=== PATIENT | male | born 1965 | race Caucasian/White ===

== ENCOUNTER → 2016-10-06 | Day surgery (SDC) | payer BC ==
[~2016-10-06] MED LIST: Acetaminophen/HYDROcodone 325-5 MG Tab PO PRN; Ketorolac 30 MG/ML SDV IVPUSH PRN; Lactated Ringers 1,000 ML IV SCH; Lidocaine 1% 4 ML ONE; Lidocaine 1%/Sod Bicarbonate in NS 8.4% 1 ML Syringe IV PRN; Midazolam 1 MG/ML 2 ML SDV ONE; Ondansetron 4 MG/2 ML SDV IVPUSH PRN; Ondansetron 4 MG/2 ML SDV ONE; Propofol 200 MG/20 ML SDV ONE; Sodium Chloride 0.9% 10 ML Syringe FLUSH PRN; Vancomycin 1 GM, Vancomycin 500 MG in Sodium Chloride 0.9% 500 ML IV ONE; ceFAZolin 1 GM Vial ONE; ePHEDrine/Normal Saline 25 MG/5 ML Syringe ONE; fentaNYL 250 MCG/5 ML SDV ONE; oxyCODONE ER 10 MG TAB.ER PO ONE
--- NOTE | 2016-10-06 09:38 | PCM.PREANE ---
Preanesthetic Assessment - Anesthesia/Transfusion/Family Hx Anesthesia History: Prior Anesthesia Without Reaction Family History of Anesthesia Reaction: No Type of Transfusion Reactions: Reports: Unknown - Review of Systems General: No Symptoms Pulmonary: No Symptoms Cardiovascular: No Symptoms Gastrointestinal: No symptoms Neurological: No Symptoms Other: Reports: None - Physical Assessment NPO Status Date: 10/05/16 NPO Status Time: 00:00 Pulse: 60 O2 Sat by Pulse Oximetry: 97 Respiratory Rate: 16 Blood Pressure: 139/88 Temperature: 35.9 C Height: 1.88 m Weight: 95.254 kg ASA Class: 2 Mental Status: Alert & Oriented x3 Dentition: Reports: Normal Dentition, [place](s) Thyro-Mental Finger Breadths: 3 Mouth Opening Finger Breadths: 3 ROM/Head Extension: Full Lungs: Clear to auscultation, Normal respiratory effort Cardiovascular: Regular Rate, Regular Rhythm, No Murmurs - Allergies Allergies/Adverse Reactions: Allergies Allergy/AdvReac Type Severity Reaction Status Date / Time erythromycin base Allergy Anaphylactic Verified 10/05/16 15:15 [Erythromycin Base] Shock hydromorphone [Hydromorphone] Allergy Hives Verified 10/05/16 15:15 - Blood Blood Available: Yes Product(s) Available: None - Anesthesia Plan Pre-Op Medication Ordered: Beta Donte Beta Donte: Atenolol Med Last Dose Date: 10/05/16 Med Last Dose Time: 18:00 - Acknowledgements Anesthesia Type Planned: General Anesthesia Pt an Appropriate Candidate for the Planned Anesthesia: Yes Alternatives and Risks of Anesthesia Discussed w Pt/Guardian: Yes Pt/Guardian Understands and Agrees with Anesthesia Plan: Yes PreAnesthesia Questionnaire HEENT History: Reports: Allergic rhinitis, Impaired vision, Otitis media, Sinusitis, Other (see below) Other HEENT History: wears glasses Cardiovascular History: Reports: Hypertension, Other (see below) Other Cardiovascular History: chest pain, orthostatic hypotension Respiratory History: Reports: Bronchitis, recurrent, Other (see below) Other Respiratory History: cough Gastrointestinal History: Reports: GERD Genitourinary History: Reports: Renal calculus, Other (see below) Other Genitourinary History: hematuria 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 Musculoskeletal History: Reports: Other (see below) Other Musculoskeletal History: bunion, R rotator cuff tear, back ache, hand fracture, hallux valgus, hammertoe Neurological History: Reports: Concussion, Headaches, chronic, Vertigo, Other ( see below) Other Neuro History: syncope Psychiatric History: Reports: Other (see below) Other Psychiatric History: insomnia Endocrine/Metabolic History: Reports: Other (see below) Other Endocrine/Metabolic History: impaired fasting glucose Hematologic History: Reports: None Immunologic History: Reports: None Oncologic (Cancer) History: Reports: Malignant melanoma Dermatologic History: Reports: Cellulitis, Melanoma Other Dermatologic History: toe infections, cellulitis and abcess, keratoderma, 2nd degree burn, malignant melanoma, nevus - Infectious Disease History Infectious Disease History: Reports: MRSA - Past Surgical History HEENT Surgical History: Reports: Adenoidectomy, Tonsillectomy GI Surgical History: Reports: Colonoscopy, EGD Male Surgical History: Reports: Other (see below) Other Male Surgeries/Procedures: cystoscopy Other Musculoskeletal Surgeries/Procedures:: 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 3rd and 4th left toes removed, big toe amputation, R shoulder fracture with surgery x 2 - SUBSTANCE USE Smoking Status *Q: Former Smoker Tobacco Use Within Last Twelve Months: Snuff/Dip Second Hand Smoke Exposure: Yes Days Per Week of Alcohol Use: 1 Number of Drinks Per Day: 1 Total Drinks Per Week: 1 Recreational Drug Use History: No - HOME MEDS Home Medications: Home Meds Aspirin [Ecotrin] 81 mg PO BEDTIME 10/25/13 [History] Esomeprazole Magnesium [Nexium] 20 mg PO BEDTIME 10/25/13 [History] Loratadine [Claritin RediTabs] 10 mg PO BEDTIME 10/25/13 [History] amLODIPine Besylate/Benazepril [Amlodipine-Benazepril 10-20 MG] 1 cap PO BEDTIME 10/25/13 [History] Ibuprofen [Advil] 4 cap PO Q12H PRN 05/22/14 [History] Potassium Chloride [Klor-Con M20] 20 meq PO BEDTIME 05/22/14 [History] Chlorthalidone 25 mg PO BEDTIME 03/25/16 [History] Atenolol [Atenolol] 12.5 mg PO DAILY 10/05/16 [History] - CURRENT (IN HOUSE) MEDS Current Meds: Current Medications Lactated Ringer's (Ringers, Lactated) 1,000 mls @ 125 mls/hr IV ASDIRECTED SAGAR Vancomycin HCl 1 gm/Vancomycin HCl 500 mg/ Sodium Chloride 500 mls @ 333.333 mls/hr IV ONETIME ONE Stop: 10/06/16 11:19 Lidocaine/Sodium Bicarbonate (Buffered Lidocaine 1% In Ns 8.4%) 0.25 ml IV ONETIME PRN PRN Reason: Prior to IV Start Sodium Chloride (Saline Flush) 10 ml FLUSH ASDIRECTED PRN PRN Reason: Keep Vein Open Discontinued Medications Cefazolin Sodium (Ancef) Confirm Administered Dose 2 gm .ROUTE .STK-MED ONE Stop: 10/06/16 09:31 Fentanyl (Sublimaze) Confirm Administered Dose 250 mcg .ROUTE .STK-MED ONE Stop: 10/06/16 09:31 Vancomycin HCl 1 gm/Vancomycin HCl 500 mg/ Sodium Chloride 500 mls @ 333.333 mls/hr IV ONETIME ONE Stop: 10/06/16 11:19 Lidocaine HCl (Xylocaine-Mpf 1%) Confirm Administered Dose 4 mls @ as directed .ROUTE .STK-MED ONE Stop: 10/06/16 09:31 Midazolam HCl (Versed 1 Mg/Ml) Confirm Administered Dose 2 mg .ROUTE .STK-MED ONE Stop: 10/06/16 09:31 Ondansetron HCl (Zofran) Confirm Administered Dose 4 mg .ROUTE .STK-MED ONE Stop: 10/06/16 09:30 Propofol (Diprivan 20 Ml) Confirm Administered Dose 200 mg .ROUTE .STK-MED ONE Stop: 10/06/16 09:30
[2016-10-06] MEDS: Bupivacaine 0.5% 30 ML SDV ONE ×2 (10:25→10:47)
[2016-10-06] MEDS: Iodine/Sodium Iodide 2% Tincture 30 ML Bottle ONE ×2 (10:45→10:47)
--- NOTE | 2016-10-06 11:15 | PCM.POSTAN ---
POST ANESTHESIA ASSESSMENT - MENTAL STATUS Mental Status: alert, oriented - VITAL SIGNS Pulse Rate: 82 SaO2: 95 Resp Rate: 15 Blood Pressure: 136/92 Temperature: 37.1 C - RESPIRATORY Respiratory Status: respiratory rate WNL, airway patent, O2 saturation stable - CARDIOVASCULAR CV Status: pulse rate WNL, blood pressure stable - GASTROINTESTINAL GI Status: no symptoms - PAIN Pain Score: 4 - POST OP HYDRATION Hydration Status: adequate & stable - OBSERVATIONS Free Text/Narrative:: no anesthesia complications noted
[2016-10-06] MEDS: fentaNYL 100 MCG/2 ML SDV IVPUSH PRN ×3 (11:22→11:38)
--- NOTE | 2016-10-06 13:20 | OR ---
DATE OF OPERATION: 10/06/2016 SURGEON: Carlitos Escamilla MD PREOPERATIVE DIAGNOSIS: 1. Painful hardware, first metatarsal, left foot. 2. Painful scar/neuroma formation, incisional site, first metatarsal left foot. POSTOPERATIVE DIAGNOSIS: 1. Painful hardware, first metatarsal, left foot. 2. Painful scar/neuroma formation, incisional site, first metatarsal left foot. ANESTHESIA: General. OPERATION PERFORMED: 1. Removal of painful hardware, 2 screws, first metatarsal, left foot. 2. Excision of painful scar neuroma incision site, left foot. DESCRIPTION OF PROCEDURE: The patient was taken to the operating room in supine position. He was placed under a general anesthesia. The left leg was then prepped and draped by standard technique and the operation began with evaluation of the left foot with fluoroscopy. Using an 18-gauge needle, the fixation sites for the screws that were painful were identified. A #11 blade was then used to go through the skin and dissection was carried down to the screw heads. They were removed in retrograde fashion and 2 incisions were necessary. Once that was complete, the operation had hard copy x-rays taken. The area of the painful scar neuroma-type formation was identified. This area was then sharply incised using an #11 blade creating a small elliptical incision going deep on the scar and excising it approximately 4 mm below the surface. A piece of tissue was then removed and then sent to the laboratory for study. After the removal of the mass, the operation proceeded with irrigation of the wounds with iodine solution. Once thorough irrigation was completed, the skin edges were closed with 4-0 Prolene interrupted. Xeroform was used for dressing, standard dressings, soft dressing being applied to the foot. The patient tolerated this whole procedure well and left the operating room in stable condition to his room for recovery. ESTIMATED BLOOD LOSS: MMODAL /[id number]
[2016-10-06 13:44] VITALS: BP 141/87
--- NOTE | 2016-10-07 10:05 | CR ---
Left foot: Three fluoroscopic spot views were obtained of the left foot utilizing C-arm device. Comparison: Previous left foot study of 03/16/16. Two orthopedic screws seen previously within the first metatarsal have been removed in the interim. Fluoroscopy time is given as 38.4 seconds. Impression: 1. Findings as described above. Diagnostic code #1
== END | disposition home or self-care (01) ==
LOC: JD.SDS 09:11
PROVIDERS: ATTEND Specialist
DX: T84.84XA Pain due to internal orthopedic prosthetic devices, implants and grafts, initial encounter (principal); L90.5 Scar conditions and fibrosis of skin; Z88.1 Allergy status to other antibiotic agents; Z88.8 Allergy status to other drugs, medicaments and biological substances; I10 Essential (primary) hypertension; Z79.82 Long term (current) use of aspirin; Z79.899 Other long term (current) drug therapy; K21.9 Gastro-esophageal reflux disease without esophagitis; Z90.49 Acquired absence of other specified parts of digestive tract; Z98.890 Other specified postprocedural states; Z87.891 Personal history of nicotine dependence
CPT/HCPCS: 11421; 28022; 76000; 88305; A9270; J0690; J1885; J2250; J2405; J3010; J3370; J7040; J7050; J7120; 01480; J2704

== ENCOUNTER 2017-02-24 07:45 | Day surgery (SDC) | payer BC ==
[~2017-02-24 07:45] MED LIST changes: -Acetaminophen/HYDROcodone 325-5 MG Tab PO PRN; -Ketorolac 30 MG/ML SDV IVPUSH PRN; -Lidocaine 1% 4 ML ONE; -Lidocaine 1%/Sod Bicarbonate in NS 8.4% 1 ML Syringe IV PRN; +Lidocaine 1%/Sod Bicarbonate in NS 8.4% 1 ML Syringe PRN; -Midazolam 1 MG/ML 2 ML SDV ONE; -Ondansetron 4 MG/2 ML SDV IVPUSH PRN; -Ondansetron 4 MG/2 ML SDV ONE; -Vancomycin 1 GM, Vancomycin 500 MG in Sodium Chloride 0.9% 500 ML IV ONE; -ceFAZolin 1 GM Vial ONE; -ePHEDrine/Normal Saline 25 MG/5 ML Syringe ONE; +fentaNYL 100 MCG/2 ML SDV ONE; -fentaNYL 250 MCG/5 ML SDV ONE; -oxyCODONE ER 10 MG TAB.ER PO ONE
--- NOTE | 2017-02-24 08:12 | PCM.PREANE ---
Preanesthetic Assessment - Anesthesia/Transfusion/Family Hx Anesthesia History: Prior Anesthesia Without Reaction Family History of Anesthesia Reaction: No Transfusion History: No Prior Transfusion(s) Intubation History: Unknown - Review of Systems General: No Symptoms Pulmonary: No Symptoms (chew tobacco 02/23/17 @ 1200) Cardiovascular: No Symptoms (HTN) Gastrointestinal: No Symptoms (variable bowel habits as a symptom of spina bifida history) Neurological: No Symptoms (chronic left foot pain noted 10/14.) Other: Reports: None, Sinus Problem (chronic rhinitis) - Physical Assessment NPO Status Date: 02/23/17 NPO Status Time: 16:00 Pulse: 89 O2 Sat by Pulse Oximetry: 97 Respiratory Rate: 16 Blood Pressure: 126/77 Temperature: 36.7 C Height: 1.88 m Weight: 86 kg ASA Class: 2 Mental Status: Alert & Oriented x3 Airway Class: Mallampati = 2 Dentition: Reports: Normal Dentition, Caries Thyro-Mental Finger Breadths: 3 Mouth Opening Finger Breadths: 3 ROM/Head Extension: Full Lungs: Clear to Auscultation, Normal Respiratory Effort Cardiovascular: Regular Rate, Regular Rhythm, No Murmurs - Lab Values: MRSA screen is positive. - Allergies Allergies/Adverse Reactions: Allergies Allergy/AdvReac Type Severity Reaction Status Date / Time erythromycin base Allergy Anaphylactic Verified 02/24/17 07:47 [Erythromycin Base] Shock hydromorphone [Hydromorphone] Allergy Hives Verified 02/24/17 07:47 - Anesthesia Plan Pre-Op Medication Ordered: Beta Donte Beta Donte: Atenolol Med Last Dose Date: 02/22/17 Med Last Dose Time: 17:00 - Acknowledgements Anesthesia Type Planned: MAC Pt an Appropriate Candidate for the Planned Anesthesia: Yes Alternatives and Risks of Anesthesia Discussed w Pt/Guardian: Yes Pt/Guardian Understands and Agrees with Anesthesia Plan: Yes PreAnesthesia Questionnaire HEENT History: Reports: Allergic Rhinitis, Impaired Vision, Otitis Media, Sinusitis, Other (See Below) Other HEENT History: wears glasses Cardiovascular History: Reports: Hypertension, Other (See Below) Other Cardiovascular History: chest pain, orthostatic hypotension Respiratory History: Reports: Bronchitis, Recurrent, Other (See Below) Other Respiratory History: cough Gastrointestinal History: Reports: GERD Genitourinary History: Reports: Renal Calculus, Other (See Below) Other Genitourinary History: hematuria 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 Musculoskeletal History: Reports: Other (See Below) Other Musculoskeletal History: bunion, R rotator cuff tear, back ache, hand fracture, hallux valgus, hammertoe Neurological History: Reports: Concussion, Headaches, Chronic, Vertigo, Other ( See Below) Other Neuro History: syncope Psychiatric History: Reports: Other (See Below) Other Psychiatric History: insomnia Endocrine/Metabolic History: Reports: Other (See Below) Other Endocrine/Metabolic History: impaired fasting glucose Hematologic History: Reports: None Immunologic History: Reports: None Oncologic (Cancer) History: Reports: Malignant Melanoma Dermatologic History: Reports: Cellulitis, Melanoma Other Dermatologic History: toe infections, cellulitis and abcess, keratoderma, 2nd degree burn, malignant melanoma, nevus - Infectious Disease History Infectious Disease History: Reports: MRSA - Past Surgical History HEENT Surgical History: Reports: Adenoidectomy, Tonsillectomy GI Surgical History: Reports: Colonoscopy, EGD Male Surgical History: Reports: Other (See Below) Other Male Surgeries/Procedures: cystoscopy Other Musculoskeletal Surgeries/Procedures:: 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 3rd and 4th left toes removed, big toe amputation, R shoulder fracture with surgery x 2 - SUBSTANCE USE Smoking Status *Q: Former Smoker Tobacco Use Within Last Twelve Months: Snuff/Dip Second Hand Smoke Exposure: Yes Days Per Week of Alcohol Use: 1 Number of Drinks Per Day: 1 Total Drinks Per Week: 1 Recreational Drug Use History: No - HOME MEDS Home Medications: Home Meds Aspirin [Ecotrin] 81 mg PO BEDTIME 10/25/13 [History] Esomeprazole Magnesium [Nexium] 20 mg PO BEDTIME 10/25/13 [History] amLODIPine Besylate/Benazepril [Amlodipine-Benazepril 10-20 MG] 1 cap PO BEDTIME 10/25/13 [History] Potassium Chloride [Klor-Con M20] 20 meq PO BEDTIME 05/22/14 [History] Chlorthalidone 25 mg PO BEDTIME 03/25/16 [History] Atenolol [Atenolol] 12.5 mg PO DAILY 10/05/16 [History] Acetaminophen with Codeine [Tylenol with Codeine #3 Tablet] 1 tab PO Q6H PRN [History] - CURRENT (IN HOUSE) MEDS Current Meds: Current Medications Lactated Ringer's (Ringers, Lactated) 1,000 mls @ 125 mls/hr IV ASDIRECTED SAGAR Stop: 02/24/17 23:00 Lidocaine/Sodium Bicarbonate (Buffered Lidocaine 1% In Ns 8.4%) 0.25 ml .XX ONETIME PRN PRN Reason: Prior to IV Start Stop: 02/24/17 18:00 Sodium Chloride (Saline Flush) 10 ml FLUSH ASDIRECTED PRN PRN Reason: Keep Vein Open Stop: 02/24/17 18:00 Discontinued Medications Fentanyl (Sublimaze) Confirm Administered Dose 100 mcg .ROUTE .STK-MED ONE Stop: 02/24/17 07:37 Propofol (Diprivan 20 Ml) Confirm Administered Dose 200 mg .ROUTE .STK-MED ONE Stop: 02/24/17 07:37
[2017-02-24] MEDS ORDERED: Midazolam 1 MG/ML 2 ML SDV ONE (08:34)
[2017-02-24] MEDS ORDERED: Lidocaine 1% 2 ML ONE ×2 (08:35)
[2017-02-24] MEDS ORDERED: Lactated Ringers 1,000 ML ONE (09:34)
--- NOTE | 2017-02-24 09:34 | PCM.OPNOTE ---
- General Post-Op/Procedure Note Date of Surgery/Procedure: 02/24/17 Operative Procedure(s): Colonoscopy with descending colonic cold forcep polypectomy Findings: Diminutive polyp about 5 mm in diameter located in the descending colon at about 50 cm from the anal verge Prostate hypertrophy with the left lobe being slightly larger than the right with no nodularity appreciated Pre Op Diagnosis: Screening colonoscopy Post-Op Diagnosis: 1. Descending colonic polyp. 2. Prostate hypertrophy Anesthesia Technique: MAC, Moderate Sedation Primary Surgeon: Ramon Medina Pathology: Descending colon polyp EBL in mLs: 0 Complications: None Condition: Good Free Text/Narrative:: After adequate IV sedation and analgesia was obtained with monitoring the patient was placed on his left side. Perianal inspection and digital rectal examination were remarkable for a slightly enlarged prostate with left lobe being larger than the right. There were no prostate nodules appreciated visually. A lubricated colonoscope was inserted into the rectum and advanced to the cecum without difficulty. The bowel preparation was excellent. The cecum, ascending colon, transverse were endoscopically normal with no mass lesions or inflammatory changes seen. The descending colon at about 50 cm had a diminutive polyp which was removed with cold forceps. The specimen was retrieved and sent to pathology. The sigmoid was unremarkable. The rectum was endoscopically normal in both views. Photographs were taken for the patient and for the medical record. Air was removed as I finished the procedure which he tolerated well.
--- NOTE | 2017-02-24 09:35 | PCM48HPAN ---
Post Anesthesia Note - EVALUATION WITHIN 48HRS OF ANESTHETIC Vital Signs in Normal Range: Yes Patient Participated in Evaluation: Yes Respiratory Function Stable: Yes Airway Patent: Yes Cardiovascular Function Stable: Yes Hydration Status Stable: Yes Pain Control Satisfactory: Yes Nausea and Vomiting Control Satisfactory: Yes Mental Status Recovered: Yes
[2017-02-24] MEDS ORDERED: Propofol 200 MG/20 ML SDV ONE (09:39)
[2017-02-24 10:45] VITALS: BP 110/72
== END 2017-02-24 10:30 | disposition home or self-care (01) ==
LOC: JD.SDS 07:45
PROVIDERS: ATTEND Surgery
DX: Z12.11 Encounter for screening for malignant neoplasm of colon (principal); N40.0 Benign prostatic hyperplasia without lower urinary tract symptoms; I10 Essential (primary) hypertension; K21.9 Gastro-esophageal reflux disease without esophagitis; Z87.442 Personal history of urinary calculi; Z88.1 Allergy status to other antibiotic agents; Z88.5 Allergy status to narcotic agent; Z79.82 Long term (current) use of aspirin; Z79.899 Other long term (current) drug therapy; Z90.89 Acquired absence of other organs; Z98.890 Other specified postprocedural states; Z85.820 Personal history of malignant melanoma of skin; Z86.14 Personal history of Methicillin resistant Staphylococcus aureus infection; Z87.891 Personal history of nicotine dependence
CPT/HCPCS: 45380; J2250; J3010; J7120; 00810; J2704

== ENCOUNTER 2017-09-29 10:51 | Day surgery (SDC) | payer BC ==
[~2017-09-29 10:51] MED LIST changes: +Lidocaine 1% 6 ML ONE; +Lidocaine 1%/Sod Bicarbonate in NS 8.4% 1 ML Syringe IDERM PRN; -Lidocaine 1%/Sod Bicarbonate in NS 8.4% 1 ML Syringe PRN; -fentaNYL 100 MCG/2 ML SDV ONE
--- NOTE | 2017-09-29 11:28 | PCM.PREANE ---
Preanesthetic Assessment - Procedure Proposed Procedure: Diagnostic EGD - Anesthesia/Transfusion/Family Hx Anesthesia History: Prior Anesthesia Without Reaction Transfusion History: No Prior Transfusion(s) Type of Transfusion Reactions: Reports: Unknown Intubation History: Unknown - Review of Systems General: No Symptoms Pulmonary: No Symptoms Cardiovascular: No Symptoms Gastrointestinal: No Symptoms Neurological: No Symptoms Other: Reports: None - Physical Assessment NPO Status Date: 09/28/17 NPO Status Time: 19:30 Pulse: 57 O2 Sat by Pulse Oximetry: 98 Respiratory Rate: 16 Blood Pressure: 121/73 Temperature: 36.6 C Height: 1.88 m Weight: 90.718 kg ASA Class: 2 Mental Status: Alert & Oriented x3 Airway Class: Mallampati = 1 Dentition: Reports: Normal Dentition Thyro-Mental Finger Breadths: 3 Mouth Opening Finger Breadths: 3 ROM/Head Extension: Full Lungs: Clear to Auscultation, Normal Respiratory Effort Cardiovascular: Regular Rate, Regular Rhythm - Allergies Allergies/Adverse Reactions: Allergies Allergy/AdvReac Type Severity Reaction Status Date / Time erythromycin base Allergy Anaphylactic Verified 09/28/17 12:31 [Erythromycin Base] Shock hydromorphone [Hydromorphone] Allergy Hives Verified 09/28/17 12:31 - Blood Blood Available: No Product(s) Available: None - Anesthesia Plan Pre-Op Medication Ordered: None - Acknowledgements Anesthesia Type Planned: MAC Pt an Appropriate Candidate for the Planned Anesthesia: Yes Alternatives and Risks of Anesthesia Discussed w Pt/Guardian: Yes Pt/Guardian Understands and Agrees with Anesthesia Plan: Yes PreAnesthesia Questionnaire HEENT History: Reports: Sinusitis, Other (See Below) Other HEENT History: pharyngitis, nasal polyp Cardiovascular History: Reports: Hypertension Other Cardiovascular History: chest pain, orthostatic hypotension Respiratory History: Reports: Bronchitis, Recurrent Other Respiratory History: cough Gastrointestinal History: Reports: GERD Genitourinary History: Reports: Renal Calculus Other Genitourinary History: hematuria 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: 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: 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 Musculoskeletal History: Reports: Other (See Below) Other Musculoskeletal History: Left foot pain Neurological History: Reports: None Other Neuro History: syncope Psychiatric History: Reports: None Other Psychiatric History: insomnia Endocrine/Metabolic History: Reports: None Other Endocrine/Metabolic History: impaired fasting glucose Hematologic History: Reports: None Immunologic History: Reports: None Oncologic (Cancer) History: Reports: None Dermatologic History: Reports: Cellulitis, Melanoma Other Dermatologic History: Painful scar - Infectious Disease History Infectious Disease History: Reports: MRSA - Past Surgical History HEENT Surgical History: Reports: Tonsillectomy Cardiovascular Surgical History: Reports: None Respiratory Surgical History: Reports: None GI Surgical History: Reports: None Male Surgical History: Reports: None Endocrine Surgical History: Reports: None Neurological Surgical History: Reports: None Other Musculoskeletal Surgeries/Procedures:: Removal of implant left foot, neuroma of amputation stump Oncologic Surgical History: Reports: None Dermatological Surgical History: Reports: None - SUBSTANCE USE Smoking Status *Q: Current Every Day Smoker Tobacco Use Within Last Twelve Months: Snuff/Dip Second Hand Smoke Exposure: No Days Per Week of Alcohol Use: 1 Number of Drinks Per Day: 1 Total Drinks Per Week: 1 Recreational Drug Use History: No - HOME MEDS Home Medications: Home Meds Aspirin [Ecotrin] 81 mg PO BEDTIME 10/25/13 [History] Esomeprazole Magnesium [Nexium] 20 mg PO BEDTIME 10/25/13 [History] amLODIPine Besylate/Benazepril [Amlodipine-Benazepril 10-20 MG] 1 cap PO BEDTIME 10/25/13 [History] Potassium Chloride [Klor-Con M20] 20 meq PO BEDTIME 05/22/14 [History] Chlorthalidone 25 mg PO BEDTIME 03/25/16 [History] Atenolol 12.5 mg PO BEDTIME 10/05/16 [History] Acetaminophen with Codeine [Acetaminophen-Cod #3] 1 tab PO Q6H PRN 09/28/17 [ History] Celecoxib [CeleBREX] 200 mg PO BEDTIME 09/28/17 [History] Montelukast Sodium [Singulair] 4 mg PO BEDTIME 09/28/17 [History] - CURRENT (IN HOUSE) MEDS Current Meds: Current Medications Lactated Ringer's (Ringers, Lactated) 1,000 mls @ 125 mls/hr IV ASDIRECTED SAGAR Stop: 09/29/17 23:00 Lidocaine/Sodium Bicarbonate (Buffered Lidocaine 1% In Ns 8.4%) 0.25 ml IDERM ONETIME PRN PRN Reason: Prior to IV Start Stop: 09/29/17 18:00 Sodium Chloride (Saline Flush) 10 ml FLUSH ASDIRECTED PRN PRN Reason: Keep Vein Open Stop: 09/29/17 18:00 Discontinued Medications Lidocaine HCl (Xylocaine-Mpf 1%) Confirm Administered Dose 6 mls @ as directed .ROUTE .STK-MED ONE Stop: 09/29/17 08:59 Propofol (Diprivan 20 Ml) Confirm Administered Dose 200 mg .ROUTE .STK-MED ONE Stop: 09/29/17 08:59
--- NOTE | 2017-09-29 12:25 | PCM.OPNOTE ---
- General Post-Op/Procedure Note Date of Surgery/Procedure: 09/29/17 Operative Procedure(s): Esophagogastroduodenoscopy with GE junction biopsy 2 Findings: Sliding hiatal hernia Pre Op Diagnosis: Chronic GERD with regurgitation symptoms Post-Op Diagnosis: moderate size sliding hiatal hernia type I Anesthesia Technique: MAC, Moderate Sedation Primary Surgeon: Ramon Medina Pathology: GE junction biopsy 2 EBL in mLs: 0 Complications: None Condition: Good Free Text/Narrative:: After adequate IV sedation and analgesia was obtained with monitoring the patient was placed on his left side. Through a bite-block lubricated upper endoscope was inserted into the esophagus and advanced under direct vision to the stomach. Additional air was given here. The pylorus was identified followed by passage of scope to the second part of the duodenum. The second and first parts of the duodenum were endoscopically normal with no inflammatory changes seen. The antrum was unremarkable as well. In the retroflexed view I could see the moderately sized sliding type I hiatal hernia. The fundic and cardiac regions were grossly normal. The rugal folds were grossly normal. Gastric motility was also grossly normal. The scope was withdrawn to the GE junction with there was no stricturing and no gross inflammatory changes. There are no stasis or peptic changes within the herniated segment. Two biopsies were taken of the GE junction for histologic evaluation. The body of the esophagus was grossly normal. Air was removed as I finished the procedure which he tolerated well. Padded Box Sewer photographs weretaken for the patient and for the medical record.
--- NOTE | 2017-09-29 12:35 | PCM48HPAN ---
Post Anesthesia Note - EVALUATION WITHIN 48HRS OF ANESTHETIC Vital Signs in Normal Range: Yes Patient Participated in Evaluation: Yes Respiratory Function Stable: Yes Airway Patent: Yes Cardiovascular Function Stable: Yes Hydration Status Stable: Yes Pain Control Satisfactory: Yes Nausea and Vomiting Control Satisfactory: Yes Mental Status Recovered: Yes Pulse Rate: 57 SaO2: 92 Resp Rate: 16 Temperature: 36.6 C Blood Pressure: 121/73
[2017-09-29 12:36] VITALS: BP 121/73
== END 2017-09-29 12:55 | disposition home or self-care (01) ==
LOC: JD.SDS 10:51
PROVIDERS: ATTEND Surgery
DX: K44.9 Diaphragmatic hernia without obstruction or gangrene (principal); I10 Essential (primary) hypertension; J44.9 Chronic obstructive pulmonary disease, unspecified; Z88.1 Allergy status to other antibiotic agents; Z88.8 Allergy status to other drugs, medicaments and biological substances
CPT/HCPCS: 43239; J2001; J7120; J2704

== ENCOUNTER 2019-02-04 11:06 | Emergency (ER) | payer BC ==
[2019-02-04 11:35] VITALS: BP 120/73
[2019-02-04] MEDS ORDERED: Sodium Chloride 0.9% 10 ML Syringe FLUSH PRN (12:18)
--- NOTE | 2019-02-04 12:25 | EDM.PDOC ---
ED HPI GENERAL MEDICAL PROBLEM - General Chief Complaint: Cardiovascular Problem Stated Complaint: FAST HEART RATE Time Seen by Provider: 02/04/19 11:59 Source of Information: Reports: Patient History Limitations: Reports: No Limitations - History of Present Illness INITIAL COMMENTS - FREE TEXT/NARRATIVE: 53-year-old male presents to the ED with concerns of heart racing, tunnel vision , lightheadedness, diaphoresis, with sensation that he was going to pass out. Patient states he was walking this morning approximately 10:00 when he notices heart was beating between 106 and 1 20/m. During this time patient felt all the symptoms as listed above. States with resting in the ED waiting room all symptoms have dissipated. At no time has the patient developed any chest pain associated with this. He denies any short of breath, cough, nausea vomiting, abdominal pain, vision loss, focal neurological deficits, and/or any additional complaints. He did experience some numbness and tingling to his right arm and hand while he was breathing fast that went away with rest. There was no weakness associated with this. He has no prior history of similar symptoms. He has not been consuming heavy amounts of alcohol nor has the patient been exerting himself in abnormal ways outside in the heat. He carries a history of hypertension and is currently medicated for. He denies any history of diabetes, hypercholesteremia, smoking history, heavy alcohol use. His mom and brother both have a history of CAD, underwent cardiac ablation, and have pacemakers in place. - Related Data Allergies Allergy/AdvReac Type Severity Reaction Status Date / Time erythromycin base Allergy Anaphylactic Verified 02/04/19 11:35 [Erythromycin Base] Shock hydromorphone [Hydromorphone] Allergy Hives Verified 02/04/19 11:35 Home Meds: Home Meds Aspirin [Ecotrin EC] 81 mg PO BEDTIME 10/25/13 [History] amLODIPine Besylate/Benazepril [Amlodipine-Benazepril 10-20 MG] 1 cap PO BEDTIME 10/25/13 [History] Potassium Chloride [Klor-Con M20] 20 meq PO BEDTIME 05/22/14 [History] Chlorthalidone 25 mg PO BEDTIME 03/25/16 [History] Acetaminophen with Codeine [Acetaminophen-Cod #3] 1 tab PO Q6H PRN 09/28/17 [ History] Montelukast Sodium [Singulair] 4 mg PO BEDTIME 09/28/17 [History] Past Medical History HEENT History: Reports: Allergic Rhinitis, Impaired Vision, Otitis Media, Sinusitis, Other (See Below) Other HEENT History: wears glasses Cardiovascular History: Reports: Hypertension, Other (See Below) Other Cardiovascular History: chest pain, orthostatic hypotension Respiratory History: Reports: Bronchitis, Recurrent, Other (See Below) Other Respiratory History: cough Gastrointestinal History: Reports: GERD Genitourinary History: Reports: Renal Calculus, Other (See Below) Other Genitourinary History: hematuria PET HANDLER History: Reports: None Musculoskeletal History: Reports: Other (See Below) Other Musculoskeletal History: bunion, R rotator cuff tear, back ache, hand fracture, hallux valgus, hammertoe Neurological History: Reports: Concussion, Headaches, Chronic, Vertigo, Other ( See Below) Other Neuro History: syncope Psychiatric History: Reports: Other (See Below) Other Psychiatric History: insomnia Endocrine/Metabolic History: Reports: Other (See Below) Other Endocrine/Metabolic History: impaired fasting glucose Hematologic History: Reports: None Immunologic History: Reports: None Oncologic (Cancer) History: Reports: Malignant Melanoma Dermatologic History: Reports: Cellulitis, Melanoma Other Dermatologic History: toe infections, cellulitis and abcess, keratoderma, 2nd degree burn, malignant melanoma, nevus - Infectious Disease History Infectious Disease History: Reports: MRSA Other Infectious Disease History: Has had 3 negative MRSA screenings - Past Surgical History HEENT Surgical History: Reports: Adenoidectomy, Tonsillectomy GI Surgical History: Reports: Colonoscopy, EGD, Rhiannon Fundoplication Male Surgical History: Reports: Other (See Below) Other Musculoskeletal Surgeries/Procedures:: 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 3rd and 4th left toes removed, big toe amputation, R shoulder fracture with surgery x 2 Social & Family History - Tobacco Use Smoking Status *Q: Never Smoker Second Hand Smoke Exposure: No - Caffeine Use Caffeine Use: Reports: Soda - Recreational Drug Use Recreational Drug Use: No ED ROS GENERAL - Review of Systems Review Of Systems: ROS reveals no pertinent complaints other than HPI. ED EXAM, GENERAL - Physical Exam Exam: See Below Exam Limited By: No Limitations General Appearance: Alert, WD/WN, No Apparent Distress Eye Exam: Bilateral Eye: Normal Inspection, PERRL, Vision Changes (none currently) Ears: Hearing Grossly Normal Nose: Normal Inspection Throat/Mouth: Normal Inspection, Normal Oropharynx, Normal Voice, No Airway Compromise Head: Atraumatic, Normocephalic Neck: Normal Inspection, Supple, Non-Tender, Full Range of Motion. No: Carotid Bruit Respiratory/Chest: No Respiratory Distress, Lungs Clear, Normal Breath Sounds, No Accessory Muscle Use, Chest Non-Tender Cardiovascular: Normal Peripheral Pulses, Regular Rate, Rhythm, No Murmur Peripheral Pulses: 2+: Radial (L), Radial (R) GI/Abdominal: Normal Bowel Sounds, Soft, Non-Tender, No Organomegaly, No Distention Back Exam: Normal Inspection Extremities: Normal Inspection Neurological: Alert, Oriented, CN II-XII Intact, Normal Cognition Psychiatric: Normal Affect, Normal Mood Skin Exam: Warm, Dry, Intact, Normal Color Course - Vital Signs Last Recorded V/S: Last Vital Signs Temp 98 F 02/04/19 11:32 Pulse 77 02/04/19 11:32 Resp 13 02/04/19 11:32 BP 120/73 02/04/19 11:32 Pulse Ox 99 02/04/19 11:32 - Orders/Labs/Meds Orders: Active Orders 24 hr Category Date Time Status EKG 12 Lead [EKG Documentation Completion] [RC] STAT Care 02/04/19 12:16 Active Peripheral IV Care [RC] . DIRECTED Care 02/04/19 12:18 Active Chest 1V Frontal [CR] Stat Exams 02/04/19 12:16 Taken Peripheral IV Insertion Adult [OM.PC] Routine Oth 02/04/19 12:18 Ordered Labs: Laboratory Tests 02/04/19 02/04/19 02/04/19 Range/Units 12:35 12:35 15:10 WBC 7.29 (4.23-9.07) K/mm3 RBC 4.98 (4.63-6.08) M/mm3 Hgb 15.2 (13.7-17.5) gm/L Hct 43.7 (40.1-51.0) % MCV 87.8 (79.0-92.2) fl MCH 30.5 (25.7-32.2) pg MCHC 34.8 (32.2-35.5) g/dl RDW Std Deviation 39.7 (35.1-43.9) fL Plt Count 236 (163-337) K/mm3 MPV 8.7 L (9.4-12.3) fl Neutrophils % (Manual) 70 H (40-60) % Band Neutrophils % 0 (0-10) % Lymphocytes % (Manual) 22 (20-40) % Atypical Lymphs % 0 % Monocytes % (Manual) 3 (2-10) % Eosinophils % (Manual) 4 (0.8-7.0) % Basophils % (Manual) 1 (0.2-1.2) Platelet Estimate Adequate Plt Morphology Comment Normal RBC Morph Comment Normal Sodium 142 (136-145) mEq/L Potassium 3.6 (3.5-5.1) mEq/L Chloride 104 (98-107) mEq/L Carbon Dioxide 27 (21-32) mEq/L Anion Gap 14.6 (5-15) BUN 16 (7-18) mg/dL Creatinine 1.0 (0.7-1.3) mg/dL Est Cr Clr Drug Dosing 100.47 mL/min Estimated GFR (MDRD) > 60 (>60) mL/min BUN/Creatinine Ratio 16.0 (14-18) Glucose 125 H (74-106) mg/dL Calcium 9.1 (8.5-10.1) mg/dL Total Bilirubin 0.4 (0.2-1.0) mg/dL AST 26 (15-37) U/L ALT 30 (16-63) U/L Alkaline Phosphatase 84 (46-116) U/L Troponin I < 0.017 < 0.017 (0.00-0.056) ng/mL Total Protein 7.8 (6.4-8.2) g/dl Albumin 4.2 (3.4-5.0) g/dl Globulin 3.6 gm/dL Albumin/Globulin Ratio 1.2 (1-2) Meds: Medications Discontinued Medications Generic Name Dose Route Start Last Admin Trade Name Freq PRN Reason Stop Dose Admin Sodium Chloride 1,000 mls @ 250 mls/hr 02/04/19 12:30 02/04/19 12:32 Normal Saline IV 250 mls/hr ASDIRECTED SAGAR Administration Sodium Chloride 10 ml 02/04/19 12:18 02/04/19 12:32 Saline Flush FLUSH 10 ml ASDIRECTED PRN Administration Keep Vein Open - Re-Assessments/Exams Free Text/Narrative Re-Assessment/Exam: Current vital signs are stable. On exam there is no concerning findings. No facial droop, slurred speech, tongue deviation, weakness discrepancy to the upper and lower extremities. Finger to nose and rapid alternating movements are intact. Gait is normal. No pronator drift. He denies any JOHNSON, vision changes, chest pain, back pain, SOB, abdominal pain, n/v, parathesias, and or any additional complaints. Patient denies history of DM, hypercholesteremia, CAD, smoking, or heavy alcohol use. He denies any recreational drug use. Family history of first degree relative with heart disease mom at the age of 74 and brother. Due to the episode of almost passing out with tachycardia I will go ahead and obtain IV with normal saline 250 mls/hr. chem 14, CBC, chest x-ray one view, EKG, and troponin 2 ordered. CBC essentially normal. Chem 14 was essentially normal minus glucose 125. Troponin normal. Timed troponin pending. EKG sinus bradycardia rate of 55, MA interval 176, QTC 43, no acute ST changes noted. Chest x-ray reviewed with Dr. Melvin with no acute findings noted. 02/04/19 16:15 2nd troponin negative. Heart score 2 points low risk of 30 day MACE 0.9%-1.7%. Reassessment, provided results of 2nd troponin. Patient will see PCP this coming week to schedule stress test. Patient has no symptoms and will refrain from physical activity until evaluated by PCP. 48 Holter monitor/ event monitor may be required to catch any arrhythmias. With family history of abnormal arrhythmias requiring cardiac ablation and pacemaker implantation this is of concern. Return precautions discussed with the patient. He had no further questions or concerns. Agrees with plan. Discharge instructions as documented. Departure - Departure Time of Disposition: 16:17 Disposition: Home, Self-Care 01 Condition: Good Clinical Impression: Palpitations Instructions: Palpitations Referrals: Juanjose Fabian MD [Primary Care Provider] - Forms: ED Department Discharge Additional Instructions: Unclear at this point what may have precipitated your symptoms. Please refrain from any exertional activities until evaluated by PCP this coming week. Call and make an appointment. Suggest having a stress test this coming week as well PCP can arrang. If for any reason you develop any new or worsening symptoms please return back to the ED immediately. - My Orders Last 24 Hours: My Active Orders 02/04/19 12:16 EKG 12 Lead [EKG Documentation Completion] [RC] STAT Chest 1V Frontal [CR] Stat 02/04/19 12:18 Peripheral IV Care [RC] . DIRECTED Peripheral IV Insertion Adult [OM.PC] Routine - Assessment/Plan Last 24 Hours: My Active Orders 02/04/19 12:16 EKG 12 Lead [EKG Documentation Completion] [RC] STAT Chest 1V Frontal [CR] Stat 02/04/19 12:18 Peripheral IV Care [RC] . DIRECTED Peripheral IV Insertion Adult [OM.PC] Routine
[2019-02-04] MEDS ORDERED: Sodium Chloride 0.9% 1,000 ML IV SCH (12:30)
--- NOTE | 2019-02-05 11:46 | CR ---
Chest: Portable view of the chest was obtained. Comparison: Prior chest x-ray of 08/11/16. Heart size and mediastinum are normal. Lungs are clear. Bony structures show slight scoliosis with the spine. Impression: 1. Nothing acute is seen on portable chest x-ray. Diagnostic code #2
== END 2019-02-04 16:38 | disposition home or self-care (01) ==
LOC: JD.ED 11:06
DX: R00.2 Palpitations (principal); I10 Essential (primary) hypertension; K21.9 Gastro-esophageal reflux disease without esophagitis; Z88.1 Allergy status to other antibiotic agents; Z88.5 Allergy status to narcotic agent; Z79.82 Long term (current) use of aspirin; Z79.899 Other long term (current) drug therapy; Z87.442 Personal history of urinary calculi; Z86.14 Personal history of Methicillin resistant Staphylococcus aureus infection
CPT/HCPCS: 36415; 71045; 80053; 84484; 85007; 85027; 93005; 96360; 96361; 99285; J7040

== ENCOUNTER 2019-06-13 19:08 | Emergency (ER) | payer BC ==
[2019-06-13 19:18] VITALS: BP 155/85; PULSE 82
--- NOTE | 2019-06-13 20:06 | EDM.PDOC ---
ED HPI GENERAL MEDICAL PROBLEM - General Chief Complaint: General Stated Complaint: ALLERGIC REACTION TO HIS MEDS Time Seen by Provider: 06/13/19 20:04 - History of Present Illness INITIAL COMMENTS - FREE TEXT/NARRATIVE: 53-year-old male presents to the emergency room with a suspected allergic reaction to some antibiotics he was just started on. Patient has a longstanding infection in his left foot he just spent a long time in [place] in the hospital getting IV vancomycin. He was discharged on oral Bactrim. And seemed to do well with that. Patient been off the Bactrim for a while and then developed some drainage out of an open sore on his foot and then they followed up with his primary provider earlier today who started him on Bactrim again he took 1 dose and turned red his right face had significant swelling. By the time I saw him much of this had resolved he still had some edema in the uvula and swelling around his right eye. He had a little bit of redness on the right side of his face. - Related Data Allergies Allergy/AdvReac Type Severity Reaction Status Date / Time erythromycin base Allergy Anaphylactic Verified 06/13/19 19:18 [Erythromycin Base] Shock hydromorphone [Hydromorphone] Allergy Hives Verified 06/13/19 19:18 Home Meds: Home Meds Aspirin [Ecotrin EC] 81 mg PO BEDTIME 10/25/13 [History] amLODIPine Besylate/Benazepril [Amlodipine-Benazepril 10-20 MG] 1 cap PO BEDTIME 10/25/13 [History] Potassium Chloride [Klor-Con M20] 20 meq PO BEDTIME 05/22/14 [History] Chlorthalidone 25 mg PO BEDTIME 03/25/16 [History] Acetaminophen with Codeine [Acetaminophen-Cod #3] 1 tab PO Q6H PRN 09/28/17 [ History] Doxycycline [Vibramycin] 100 mg PO BID #20 cap 06/13/19 [Rx] Sulfamethoxazole/Trimethoprim [Bactrim Ds Tablet] 1 tab PO BID 06/13/19 [History ] Past Medical History HEENT History: Reports: Allergic Rhinitis, Impaired Vision, Otitis Media, Sinusitis, Other (See Below) Other HEENT History: wears glasses Cardiovascular History: Reports: Hypertension, Other (See Below) Other Cardiovascular History: chest pain, orthostatic hypotension Respiratory History: Reports: Bronchitis, Recurrent, Other (See Below) Other Respiratory History: cough Gastrointestinal History: Reports: GERD Genitourinary History: Reports: Renal Calculus, Other (See Below) Other Genitourinary History: hematuria QUALITY COMPLIANCE COORDINATOR History: Reports: None Musculoskeletal History: Reports: Other (See Below) Other Musculoskeletal History: bunion, R rotator cuff tear, back ache, hand fracture, hallux valgus, hammertoe Neurological History: Reports: Concussion, Headaches, Chronic, Vertigo, Other ( See Below) Other Neuro History: syncope Psychiatric History: Reports: Other (See Below) Other Psychiatric History: insomnia Endocrine/Metabolic History: Reports: Other (See Below) Other Endocrine/Metabolic History: impaired fasting glucose Hematologic History: Reports: None Immunologic History: Reports: None Oncologic (Cancer) History: Reports: Malignant Melanoma Dermatologic History: Reports: Cellulitis, Melanoma Other Dermatologic History: toe infections, cellulitis and abcess, keratoderma, 2nd degree burn, malignant melanoma, nevus - Infectious Disease History Infectious Disease History: Reports: MRSA Other Infectious Disease History: Has had 3 negative MRSA screenings - Past Surgical History HEENT Surgical History: Reports: Adenoidectomy, Tonsillectomy GI Surgical History: Reports: Colonoscopy, EGD, Rhiannon Fundoplication Male Surgical History: Reports: Other (See Below) Other Musculoskeletal Surgeries/Procedures:: 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 3rd and 4th left toes removed, big toe amputation, R shoulder fracture with surgery x 2 Social & Family History - Tobacco Use Smoking Status *Q: Never Smoker - Caffeine Use Caffeine Use: Reports: Soda ED ROS GENERAL - Review of Systems Review Of Systems: See Below Constitutional: Denies: Fever, Chills HEENT: Reports: Other (Right eye swelling and right facial redness no throat swelling or difficulty swallowing). Denies: Nose Pain, Throat Pain Respiratory: Reports: No Symptoms. Denies: Shortness of Breath, Wheezing Cardiovascular: Reports: No Symptoms GI/Abdominal: Reports: No Symptoms ED EXAM, GENERAL - Physical Exam Exam: See Below Exam Limited By: No Limitations General Appearance: Alert, No Apparent Distress Eye Exam: Right Eye: Conjunctival Injection (Mild) Ears: Normal External Exam, Normal Canal, Hearing Grossly Normal, Normal TMs Nose: Normal Inspection, Normal Mucosa, No Blood Throat/Mouth: Other (Mild erythema and swelling of the uvula) Head: Atraumatic, Normocephalic Neck: Normal Inspection, Supple, Non-Tender, Full Range of Motion. No: Lymphadenopathy (L), Lymphadenopathy (R) Respiratory/Chest: No Respiratory Distress, Lungs Clear, Normal Breath Sounds Cardiovascular: Normal Peripheral Pulses, Regular Rate, Rhythm, No Edema Course - Vital Signs Last Recorded V/S: Last Vital Signs Temp 36.5 C 06/13/19 19:15 Pulse 82 06/13/19 19:15 Resp 16 06/13/19 19:15 BP 155/85 H 06/13/19 19:15 Pulse Ox 99 06/13/19 19:15 - Orders/Labs/Meds Meds: Medications Discontinued Medications Generic Name Dose Route Start Last Admin Trade Name Marlen PRN Reason Stop Dose Admin Diphenhydramine HCl 25 mg 06/13/19 20:29 06/13/19 20:36 Benadryl PO 06/13/19 20:30 25 mg ONETIME ONE Administration Famotidine 40 mg 06/13/19 20:29 06/13/19 20:36 Pepcid PO 06/13/19 20:30 40 mg ONETIME ONE Administration - Re-Assessments/Exams Free Text/Narrative Re-Assessment/Exam: 06/13/19 21:41 Give the patient some Benadryl 25 mg and 40 mg of famotidine and his swelling is resolved in his uvula and right eye. Initially I did not give steroids as he is got this infection in his foot he is trying to clear up and we will discharge him without steroids. Departure - Departure Time of Disposition: 21:41 Disposition: Home, Self-Care 01 Clinical Impression: Allergy - Discharge Information Prescriptions: Doxycycline [Vibramycin] 100 mg PO BID #20 cap Referrals: Juanjose Fabian MD [Primary Care Provider] - Forms: ED Department Discharge Additional Instructions: Return to the emergency room with any questions problems or worsening symptoms. Use Benadryl 25 mg 4 times a day as needed. Take famotidine 20 mg twice daily for 7 days. This is [id number] Sepsis Event Note - Evaluation Sepsis Screening Result: No Definite Risk - Focused Exam Vital Signs: Vital Signs Temp Pulse Resp BP Pulse Ox 06/13/19 19:15 36.5 C 82 16 155/85 H 99 Date Exam was Performed: 06/13/19 Time Exam was Performed: 21:38
[2019-06-13] MEDS ORDERED: diphenhydrAMINE 25 MG Cap PO ONE (20:29)
[2019-06-13] MEDS ORDERED: Famotidine 20 MG Tab PO ONE (20:29)
== END 2019-06-13 21:55 | disposition home or self-care (01) ==
LOC: JD.ED 19:08
DX: T78.40XA Allergy, unspecified, initial encounter (principal); I10 Essential (primary) hypertension; Z88.1 Allergy status to other antibiotic agents; Z88.8 Allergy status to other drugs, medicaments and biological substances; Z79.82 Long term (current) use of aspirin
CPT/HCPCS: 99283; A9270

== ENCOUNTER 2021-08-04 10:31 | Emergency (ER) | payer OTHER, BC ==
[2021-08-04 10:59] VITALS: BP 130/94; PULSE 77
[2021-08-04] MEDS: cefTRIAXone 1 GM, Lidocaine 1% 2.1 ML IM ONE ×2 (12:15)
[2021-08-04] MEDS: Lidocaine 1% 10 ML MDV INJECT ONE (13:40)
== END 2021-08-04 13:45 | disposition home or self-care (01) ==
LOC: JD.ED 10:31
DX: S61.411A Laceration without foreign body of right hand, initial encounter (principal); I10 Essential (primary) hypertension; K21.9 Gastro-esophageal reflux disease without esophagitis; Z72.0 Tobacco use; Z88.1 Allergy status to other antibiotic agents; Z88.5 Allergy status to narcotic agent; Z79.82 Long term (current) use of aspirin; W26.8XXA Contact with other sharp object(s), not elsewhere classified, initial encounter; Y99.0 Civilian activity done for income or pay
CPT/HCPCS: 12002; 96372; 99282; J0696